=== PATIENT | male | born 1970 | race American Indian/Alaskan Native ===

== ENCOUNTER 2020-06-02 16:12 | Emergency (ER) | payer SELFPAY ==
[2020-06-02] MEDS ORDERED: MORPHINE 4 MG/1 ML INJ IV ONE (16:44)
--- NOTE | 2020-06-02 16:55 | Emergency Department Report ---
HPI - General Chief Complaint: Hyperglycemia Time Seen by Provider: 06/02/20 16:19 - HPI HPI: This is a 49-year-old -[place] male who presents to the emergency department with 2 complaints. First, patient says that he was having some tailbone pain that has since moved to the lower abdomen since he was pinned between a forklift and some racks earlier today while at work. He denies any laceration, constipation, diarrhea, dysuria, numbness or paresthesias, weakness, or any neurological deficits. He has not taken anything for his symptoms prior to presentation. Secondly, the patient also presents with hyperglycemia. The patient has a history of diabetes on both pills and insulin and says he is compliant with his medication. However he does admit to some elevated blood sugar levels over the past few days in the 300s. He denies any other past medical conditions. He does not have a primary care physician. ED Past Medical Hx - Social History Smoking Status: Never Smoker ED Review of Systems ROS: Stated complaint: BACK PAINS Other details as noted in HPI Comment: All other systems reviewed and negative Constitutional: denies: chills, fever Eyes: denies: eye pain, vision change ENT: denies: ear pain, throat pain Respiratory: denies: cough, shortness of breath Cardiovascular: denies: chest pain, palpitations Gastrointestinal: abdominal pain. denies: vomiting Genitourinary: denies: dysuria, discharge Musculoskeletal: denies: joint swelling, arthralgia Skin: denies: rash, lesions Neurological: denies: headache, weakness, numbness, paresthesias Physical Exam - Physical Exam Vital Signs: Vital Signs 06/02/20 16:19 Temperature 98 F Pulse Rate 86 Respiratory 14 Rate Blood Pressure 135/86 O2 Sat by Pulse 98 Oximetry Physical Exam: GENERAL: The patient is well-developed well-nourished. HENT: Normocephalic. Atraumatic. Patient has moist mucous membranes. EYES: Extraocular motions are intact. NECK: Supple. Trachea is midline. CHEST/LUNGS: Clear to auscultation. There is no respiratory distress noted. HEART/CARDIOVASCULAR: Regular. There is no tachycardia. There is no murmur. ABDOMEN: Abdomen is soft. There is lower abdominal tenderness to palpation. No guarding. Patient has normal bowel sounds. There is no abdominal distention. SKIN: Skin is warm and dry. NEURO: The patient is awake, alert, and oriented. The patient is cooperative. The patient has no focal neurologic deficits. Normal speech. MUSCULOSKELETAL: There is no tenderness or deformity. There is no limitation range of motion. BACK: There is mild midline and bilateral lumbar tenderness to palpation. ED Course Vital Signs 06/02/20 16:19 Temperature 98 F Pulse Rate 86 Respiratory 14 Rate Blood Pressure 135/86 O2 Sat by Pulse 98 Oximetry ED Medical Decision Making - Lab Data Result diagrams: 06/02/20 17:06 06/02/20 18:46 Lab Results 06/02/20 06/02/20 06/02/20 Range/Units 17:06 17:06 17:06 WBC 11.0 (4.5-11.0) K/mm3 RBC 4.19 (3.65-5.03) M/mm3 Hgb 13.0 (11.8-15.2) gm/dl Hct 39.3 (35.5-45.6) % MCV 94 (84-94) fl MCH 31 (28-32) pg MCHC 33 (32-34) % RDW 12.8 L (13.2-15.2) % Plt Count 252 (140-440) K/mm3 Lymph % (Auto) 8.3 L (13.4-35.0) % Tripp % (Auto) 7.0 (0.0-7.3) % Eos % (Auto) 0.1 (0.0-4.3) % Baso % (Auto) 0.2 (0.0-1.8) % Lymph # (Auto) 0.9 L (1.2-5.4) K/mm3 Tripp # (Auto) 0.8 (0.0-0.8) K/mm3 Eos # (Auto) 0.0 (0.0-0.4) K/mm3 Baso # (Auto) 0.0 (0.0-0.1) K/mm3 Seg Neutrophils % 84.4 H (40.0-70.0) % Seg Neutrophils # 9.3 H (1.8-7.7) K/mm3 VBG pH 7.217 L (7.320-7.420) Sodium 131 L (137-145) mmol/L Potassium 4.2 (3.6-5.0) mmol/L Chloride 91.9 L (98-107) mmol/L Carbon Dioxide 18 L (22-30) mmol/L Anion Gap 25 mmol/L BUN 24 H (9-20) mg/dL Creatinine 1.1 (0.8-1.3) mg/dL Estimated GFR > 60 ml/min BUN/Creatinine Ratio 29 % Glucose 623 H* (75-100) mg/dL Calcium 8.5 (8.4-10.2) mg/dL Phosphorus (2.5-4.5) mg/dL Magnesium (1.7-2.3) mg/dL Total Bilirubin < 0.20 (0.1-1.2) mg/dL AST 134 H (5-40) units/L ALT 98 H (7-56) units/L Alkaline Phosphatase 137 H (35-129) units/L Total Protein 6.4 (6.3-8.2) g/dL Albumin 3.7 L (3.9-5) g/dL Albumin/Globulin Ratio 1.5 % 06/02/20 06/02/20 Range/Units 18:46 18:46 WBC (4.5-11.0) K/mm3 RBC (3.65-5.03) M/mm3 Hgb (11.8-15.2) gm/dl Hct (35.5-45.6) % MCV (84-94) fl MCH (28-32) pg MCHC (32-34) % RDW (13.2-15.2) % Plt Count (140-440) K/mm3 Lymph % (Auto) (13.4-35.0) % Tripp % (Auto) (0.0-7.3) % Eos % (Auto) (0.0-4.3) % Baso % (Auto) (0.0-1.8) % Lymph # (Auto) (1.2-5.4) K/mm3 Tripp # (Auto) (0.0-0.8) K/mm3 Eos # (Auto) (0.0-0.4) K/mm3 Baso # (Auto) (0.0-0.1) K/mm3 Seg Neutrophils % (40.0-70.0) % Seg Neutrophils # (1.8-7.7) K/mm3 VBG pH (7.320-7.420) Sodium 135 L (137-145) mmol/L Potassium 4.9 (3.6-5.0) mmol/L Chloride 97.2 L (98-107) mmol/L Carbon Dioxide 16 L (22-30) mmol/L Anion Gap 27 mmol/L BUN 23 H (9-20) mg/dL Creatinine 1.1 (0.8-1.3) mg/dL Estimated GFR > 60 ml/min BUN/Creatinine Ratio 21 % Glucose 567 H* (75-100) mg/dL Calcium 8.2 L (8.4-10.2) mg/dL Phosphorus 3.90 (2.5-4.5) mg/dL Magnesium 2.10 (1.7-2.3) mg/dL Total Bilirubin (0.1-1.2) mg/dL AST (5-40) units/L ALT (7-56) units/L Alkaline Phosphatase (35-129) units/L Total Protein (6.3-8.2) g/dL Albumin (3.9-5) g/dL Albumin/Globulin Ratio % - Radiology Data Radiology results: report reviewed, image reviewed interpreted by me: Abdominal x-ray shows some increased stool volume. Nonobstructive nonspecific bowel gas. No free air. CT abdomen pelvis w con INDICATION / CLINICAL INFORMATION: lower abd pain, trauma. TECHNIQUE: Axial CT imaging of abdomen and pelvis was obtained with IV contrast. Coronal and sagittal reformatted imaging obtained and reviewed. All CT scans at this location are performed using CT dose reduction for ALARA by means of automated exposure control. COMPARISON: None available. FINDINGS: CT abdomen with contrast demonstrates grossly normal appearance of the liver, spleen, pancreas, left kidney, and adrenal glands. The liver, there does appear to be a small amount of free fluid surrounding the spleen. I see no evidence of splenic laceration, however. Gallbladder is grossly unremarkable. No biliary dilatation. There is mild dilatation of the right kidney without evidence of obstructing stone in the right ureter. The urinary bladder is markedly distended which may be causing the dilatation. CT pelvis with contrast does not demonstrate any mass, free fluid, or focal inflammatory change. There is large amount of stool throughout the visualized colon. The appendix is not identified. The remainder of the GI tract is unremarkable. Visualized lung bases show trace bilateral pleural effusions. Mild bibasilar atelectasis is noted. There is soft tissue density of uncertain etiology located between the posterior aspect of the heart and the descending thoracic aorta. I cannot exclude hematoma and since all of the chest is not visualized, it may be prudent to obtain a dedicated chest CT with contrast to rule out intrathoracic trauma. No other significant finding within the lung bases. Review of bone windows demonstrates multiple transverse fractures of the lumbar spine including L1, L2, L3, L4. The left transverse fractures are intact. Multiple posterior lower left rib fractures are noted, nondisplaced. IMPRESSION: 1. Multiple fractures of the lumbar spine right transverse processes. Additional fractures of the lower left posterior ribs, as well as some anterior left lower rib fractures. 2. Small amount of free fluid surrounding the spleen with density suggestive of blood. There is no visible spl enic laceration, however. 3. Soft tissue density of uncertain etiology is seen between the heart and descending thoracic aorta inferiorly. Cannot exclude possible hematoma or hemorrhage accounting for the soft tissue density. Chest CT with contrast, if possible, should be obtained to further evaluate this finding. - Medical Decision Making Regarding the patient's hyperglycemia, he appears to be in diabetic ketoacidosis. His blood sugar has been in the 300s while at home and allegedly compliant with his medication. The patient was found to have a venous acidosis of 7.21. He has an elevated anion gap of 25. His serum blood sugar came back above 600. The patient has been given 2 L of IV fluid thus far and has been started on insulin drip. Due to the patient's complaint of trauma in which he was caught between a forklift and some type of rack or shelving, and subsequent lower abdominal pain, the patient had a CT scan of the abdomen pelvis with IV contrast. The CT shows right-sided lumbar transverse process fractures of L1-L4. The patient has multiple left lower anterior and posterior rib fractures. There is some blood seen around the spleen without any splenic laceration or etiology of the blood. Radiology also read that there was some type of soft tissue density posterior to the heart and anterior to the thoracic descending aorta but this was incompletely imaged as it was an abdominal CT and they recommend CT imaging of the chest. However, with the findings from the CT of the abdomen and pelvis, the patient needs transfer to a trauma hospital. Patient was accepted to [facility] by the trauma attending, Dr. Carlos. The patient has been updated regarding all of the lab and imaging results and the plan for transfer to [facility]. He understands and agrees to the plan. Critical Care Time: Yes Critical care time in (mins) excluding proc time.: 35 Critical care attestation.: If time is entered above; I have spent that time in minutes in the direct care of this critically ill patient, excluding procedure time. Critical care time was spent on this patient in doing his initial evaluation, multiple reevaluations, ordering and interpretation of labs and imaging, treatment of the DKA with insulin drip, discussion with [facility] for trauma transfer, and multiple discussions with the patient. Critical Care Time: 35 minutes ED Disposition Clinical Impression: Diabetic ketoacidosis, Fracture of transverse process of lumbar vertebra, Multiple rib fractures, Crush injury Disposition: DC/TX-70 ANOTHER TYPE HLTHCARE Is pt being admited?: No Condition: Serious Instructions: Diabetic Ketoacidosis (ED) Time of Disposition: 21:05
[2020-06-02 17:37] LABS: Basophils % (Auto) 0.2 % (0.0-1.8); Eosinophils % (Auto) 0.1 % (0.0-4.3); Hematocrit 39.3 % (35.5-45.6); Lymphocytes # (Auto) 0.9 K/mm3 (1.2-5.4); Lymphocytes % (Auto) 8.3 % (13.4-35.0); Mean Corpuscular HGB Conc 33 % (32-34); Mean Corpuscular Volume 94 fl (84-94); Monocytes # (Auto) 0.8 K/mm3 (0.0-0.8); Platelet Count 252 K/mm3 (140-440); Red Blood Count 4.19 M/mm3 (3.65-5.03); Red Cell Distribution Width 12.8 % (13.2-15.2)
[2020-06-02 17:47] LABS: BUN/Creatinine Ratio 29
--- NOTE | 2020-06-02 17:48 | XRay Report ---
ABDOMEN 2 VIEWS INDICATION / CLINICAL INFORMATION: Abd pain. COMPARISON: None available. FINDINGS: BOWEL: No dilated bowel. Large amounts of feces is present in the colon FREE AIR / EXTRALUMINAL GAS: None seen. CALCIFICATIONS: No significant abnormal calcifications. ADDITIONAL FINDINGS: None. LUNGS: Visualized lungs show no significant abnormality. SKELETAL STRUCTURES: No significant abnormality. IMPRESSION: 1. No significant abnormality. Signer Name: Joseph Suggs MD Signed: 06/02/2020 5:44 PM Workstation Name: [id number]
[2020-06-02 17:51] LABS: Albumin 3.7 g/dL (3.9-5); Blood Urea Nitrogen 24 mg/dL (9-20); Calcium 8.5 mg/dL (8.4-10.2); Hemolysis Index 30
[2020-06-02] MEDS ORDERED: SODIUM CHLORIDE 0.9% 1000 ML 1,000 ML IV ONE (17:57)
[2020-06-02 17:58] LABS: Alanine Aminotransferase 98 units/L (7-56)
[2020-06-02] MEDS ORDERED: INSULIN REGULAR, HUMAN 100 UNITS in SODIUM CHLORIDE 0.9% 99 ML IV SCH (19:00)
[2020-06-02 19:18] LABS: BUN/Creatinine Ratio 21; Blood Urea Nitrogen 23 mg/dL (9-20); Calcium 8.2 mg/dL (8.4-10.2); Hemolysis Index 53
[2020-06-02] MEDS ORDERED: SODIUM CHLORIDE 0.9% 1000 ML 1,000 ML IV SCH (19:45)
--- NOTE | 2020-06-02 20:41 | Cat Scan Report ---
CT abdomen pelvis w con INDICATION / CLINICAL INFORMATION: lower abd pain, trauma. TECHNIQUE: Axial CT imaging of abdomen and pelvis was obtained with IV contrast. Coronal and sagittal reformatte d imaging obtained and reviewed. All CT scans at this location are performed using CT dose reduction for ALARA by means of automated exposure control. COMPARISON: None available. FINDINGS: CT abdomen with contrast demonstrates grossly normal appearance of the liver, spleen, pancreas, left kidney, and adrenal glands. The liver, there does appear to be a small amount of free fluid surroundi ng the spleen. I see no evidence of splenic laceration, however. Gallbladder is grossly unremarkable. No biliary dilatation. There is mild dilatation of the right kidney without evidence of obstructing stone in the right ureter. The urinary bladder is markedly distended which may be causing the dilatat ion. CT pelvis with contrast does not demonstrate any mass, free fluid, or focal inflammatory change. Ther e is large amount of stool throughout the visualized colon. The appendix is not identified. The remai nder of the GI tract is unremarkable. Visualized lung bases show trace bilateral pleural effusions. Mild bibasilar atelectasis is noted. Th ere is soft tissue density of uncertain etiology located between the posterior aspect of the heart an d the descending thoracic aorta. I cannot exclude hematoma and since all of the chest is not visualiz ed, it may be prudent to obtain a dedicated chest CT with contrast to rule out intrathoracic trauma. No other significant finding within the lung bases. Review of bone windows demonstrates multiple transverse fractures of the lumbar spine including L1, L 2, L3, L4. The left transverse fractures are intact. Multiple posterior lower left rib fractures are noted, nondisplaced. IMPRESSION: 1. Multiple fractures of the lumbar spine right transverse processes. Additional fractures of the low er left posterior ribs, as well as some anterior left lower rib fractures. 2. Small amount of free fluid surrounding the spleen with density suggestive of blood. There is no vi sible splenic laceration, however. 3. Soft tissue density of uncertain etiology is seen between the heart and descending thoracic aorta inferiorly. Cannot exclude possible hematoma or hemorrhage accounting for the soft tissue density. est CT with contrast, if possible, should be obtained to further evaluate this finding. CRITICAL RESULT: Time of Discovery: 1924 [employer] Time of Communication: 1934 C[employer] COL[employer]OR Licensed Practitioner Receiving Report: Dr. Lora Read Back Performed: Yes. Signer Name: Abby Hernandez MD Signed: 06/02/2020 8:36 PM Workstation Name: [id number]
[2020-06-02 21:16] VITALS: BP 145/88
[2020-06-02 21:18] LABS: BUN/Creatinine Ratio 23; Blood Urea Nitrogen 23 mg/dL (9-20); Calcium 8.4 mg/dL (8.4-10.2); Hemolysis Index 48
[2020-06-02 21:42] LABS: Color,Urine Dark Yellow (Yellow)
[2020-06-02 21:44] LABS: Blood,Urine Large (Negative); Urobilinogen,Urine < 2.0 mg/dL (<2.0)
[2020-06-02 21:45] LABS: Bilirubin,Urine Negative (Negative)
--- NOTE | 2020-06-02 21:51 | XRay Report ---
CHEST 1 VIEW INDICATION / CLINICAL INFORMATION: trauma. COMPARISON: None available. FINDINGS: SUPPORT DEVICES: None. HEART / MEDIASTINUM: No significant abnormality. LUNGS / PLEURA: Both lungs are well-expanded. Right lung is grossly clear. There is increased marking s in the left lower lobe, retrocardiac region. No pneumothorax. ADDITIONAL FINDINGS: There are multiple minimally displaced fractures of the left lower anterolateral and posterior ribs. IMPRESSION: 1. Multiple left rib fractures primarily involving the inferior anterolateral ribs but also posterior left ribs as well. There are fractures of at least the fifth through 10th anterolateral left ribs. 2. Mild prominent markings in the left lung base possibly representing contusion. Signer Name: Abby Hernandez MD Signed: 06/02/2020 9:46 PM Workstation Name: [id number]
== END 2020-06-02 22:44 | disposition other institution (70) ==
LOC: ED 16:12
DX: S32.018A Other fracture of first lumbar vertebra, initial encounter for closed fracture (principal); S32.028A Other fracture of second lumbar vertebra, initial encounter for closed fracture; S32.039A Unspecified fracture of third lumbar vertebra, initial encounter for closed fracture; S32.048A Other fracture of fourth lumbar vertebra, initial encounter for closed fracture; S22.42XA Multiple fractures of ribs, left side, initial encounter for closed fracture; E11.10 Type 2 diabetes mellitus with ketoacidosis without coma; X58.XXXA Exposure to other specified factors, initial encounter; Y93.89 Activity, other specified; Y92.89 Other specified places as the place of occurrence of the external cause; Y99.0 Civilian activity done for income or pay
CPT/HCPCS: 36415; 71045; 74019; 74177; 80048; 80053; 81001; 82805; 82962; 83735; 84100; 85025; 96361; 96365; 96375; 99285; J2270; J7030; Q9967; J1815